=== PATIENT | female | born 1950 | race Hispanic/Latino ===

== ENCOUNTER 2016-08-09 13:24 | Outpatient (CLI) | payer MEDICARE ==
--- NOTE | 2016-08-09 15:10 | Mammography Report ---
Screening mammogram: Routine view is compared to her prior examinations dating back to 2011. In the right CC projection there is a focal asymmetry which is not clearly visualized either in the lateral projection or on prior cc images. The remainder the breast pattern is heterogeneous and symmetrically distributed bilaterally as well as the change from prior exams. CAD used. Impression: Right asymmetry. Recommendation: Spot compression imaging of the right breast. Ultrasound, if needed. BI-RADS CATEGORY: 0 = Needs additional imaging evaluation ACR BI-RADS MAMMOGRAPHIC CODES: 0 = Needs additional imaging evaluation; 1 = Negative; 2 = Benign; 3 = Probably benign; 4 = Suspicious; 5 = Malignant; 6 = Known biopsy-proven malignancy COMMENT: 1. Dense breast tissue, i.e., adenosis, fibrocystic changes, etc., may obscure an underlying neoplasm. 2. Approximately 10% of cancers are not detected with mammography. 3. A negative mammography report should not delay biopsy if a clinically suspicious mass is present.
== END 2016-08-09 13:25 | disposition home or self-care (01) ==
LOC: SPVWC 13:24
PROVIDERS: ATTEND Internal Medicine
DX: Z12.31 Encounter for screening mammogram for malignant neoplasm of breast (principal); Z78.0 Asymptomatic menopausal state
CPT/HCPCS: 77080; G0202; 77067

== ENCOUNTER 2016-08-23 09:48 | Outpatient (CLI) | payer MEDICARE, OTHER ==
--- NOTE | 2016-08-23 10:37 | Mammography Report ---
RIGHT DIGITAL DIAGNOSTIC MAMMOGRAM : 08/23/16 09:48:00 CLINICAL: Recalled for asymmetry. COMPARISON:08/09/16 screening FINDINGS: ML and spot compression CC views were performed. Satisfactory effacement of the previously described asymmetry on the spot viewright . No suspicious finding on the lateral view. IMPRESSION: Negative Mammogram. BI-RADS CATEGORY: 1 -- Negative RECOMMENDATION: Routine mammographic screening in one year. ACR BI-RADS MAMMOGRAPHIC CODES: 0 = Needs additional imaging evaluation; 1 = Negative; 2 = Benign; 3 = Probably benign; 4 = Suspicious; 5 = Malignant; 6 = Known biopsy-proven malignancy COMMENT: 1. Dense breast tissue, i.e., adenosis, fibrocystic changes, etc., may obscure an underlying neoplasm. 2. Approximately 10% of cancers are not detected with mammography. 3. A negative mammography report should not delay biopsy if a clinically suspicious mass is present. COMMENT: Patient follow-up letters are generated via our [employer] application.
== END 2016-08-23 09:49 | disposition home or self-care (01) ==
LOC: SPVWC 09:48
PROVIDERS: ATTEND Internal Medicine
DX: R92.8 Other abnormal and inconclusive findings on diagnostic imaging of breast (principal)
CPT/HCPCS: G0206-RT

== ENCOUNTER 2017-11-03 09:48 | Outpatient (CLI) | payer MEDICARE, OTHER ==
--- NOTE | 2017-11-04 13:48 | Mammography Report ---
BILATERAL DIGITAL SCREENING MAMMOGRAM with CAD: 11/03/17 09:48:00 CLINICAL: Routine screening. COMPARISON:08/09/16 FINDINGS: The breasts are heterogeneously dense, which may obscure small masses. No mass, architectural distortion or suspicious calcifications. IMPRESSION: No mammographic evidence of malignancy. BI-RADS CATEGORY: 1 - - Negative RECOMMENDATION: Routine mammographic screening in one year. COMMENT: Patient follow-up letters are generated by our [employer] application.
== END 2017-11-03 09:49 | disposition home or self-care (01) ==
LOC: SPVWC 09:48
PROVIDERS: ATTEND Internal Medicine
DX: Z12.31 Encounter for screening mammogram for malignant neoplasm of breast (principal)
CPT/HCPCS: 77067

== ENCOUNTER 2017-12-28 06:11 | Day surgery (SDC) | payer MEDICARE, OTHER ==
[2017-12-28] MEDS ORDERED: ECOTRIN PO NR (06:43)
[2017-12-28] MEDS ORDERED: NACL 0.9% 500 ML 500 ML IV SCH (07:00)
[2017-12-28] MEDS ORDERED: HEPARIN/NS 5000 UNIT/500ML(CATH LAB) 1,000 ML IR ONE (08:30)
[2017-12-28] MEDS ORDERED: CALAN ONE (08:31)
[2017-12-28] MEDS ORDERED: NITROGLYCERIN SYRINGE 3 ML ONE (08:31)
[2017-12-28] MEDS ORDERED: XYLOCAINE 2% INFILTRATI ONE (08:31)
[2017-12-28] MEDS ORDERED: HEPARIN 10,000 UNITS/10 ML ONE (08:31)
[2017-12-28] MEDS ORDERED: VERSED ONE (08:32)
[2017-12-28] MEDS ORDERED: SUBLIMAZE ONE (08:32)
--- NOTE | 2017-12-28 10:15 | Cardiac Catherization Report ---
LEFT HEART CATHETERIZATION CLINICAL INFORMATION: This 67-year-old female with obesity, hyperlipidemia, known coronary artery disease has persistent chest pain despite negative stress test. It was done under moderate sedation with 1 mg Versed and 50 mcg of fentanyl. Total sedation time was 11 minutes. START TIME: 906 END TIME: 917 Left heart catheterization was performed via the right radial artery, sterile technique, local anesthesia, normal Edi's test, 6-Indonesian radial sheath inserted. PROCEDURE FINDINGS: Left system engaged with JL3.5 catheter. Left main is large and patent. LAD is a medium caliber vessel patent proximally and distally. Diagonal 1 is a medium caliber vessel that is patent. Ramus is a eylmz-ml-tzjlng caliber vessel that is patent. Circumflex and AV groove is a large caliber. Small OM1 is patent. RCA engaged with JR4 is a large dominant vessel that is patent from proximally to distally. PDA and PLV are medium caliber vessels that are patent. LV gram done in WELSH and RODRIGUEZ view shows normal LV function, EF 55-60%, LVEDP 17 mmHg, LV is 125 mmHg, aortic is 121/69. No gradient across the aortic valve on pullback. The 5-Indonesian catheters were taken over guidewire, 6-Indonesian radial sheath was discontinued, radial dressing applied. No hematoma, no bleeding. SUMMARY: 1. Patent coronaries, right dominant system with normal LV function. 2. Continue noncardiac chest pain treatment. JOB# [id number] TASHA/MICHEAL
[2017-12-28 12:01] VITALS: BP 120/72
--- NOTE | 2017-12-28 13:18 | Short Stay Summary ---
Short Stay Documentation Date of service: 12/28/17 - History H&P: obtained from office - Allergies and Medications Current Medications: Allergies codeine Allergy (Verified 02/18/14 17:33) Nausea meperidine HCl [From Demerol] Allergy (Verified 02/18/14 17:33) Nausea Home Medications Medication Instructions Recorded Confirmed Last Taken Type Ibuprofen [Motrin] 800 mg PO Q6H PRN 02/04/14 12/28/17 12/21/17 History Metformin HCl 500 mg PO BID 02/04/14 12/28/17 12/26/17 History Metoprolol [Lopressor TAB] 25 mg PO DAILY 02/04/14 12/28/17 12/27/17 History Simvastatin [Zocor TAB] 10 mg PO QHS 09/10/15 12/28/17 12/27/17 History Valsartan [Diovan] 80 mg PO HS 09/10/15 12/28/17 12/27/17 History Aspirin [Lo-Dose Aspirin EC] 81 mg PO DAILY 12/28/17 12/28/17 12/27/17 History Carisoprodol [Soma] 350 mg PO TID PRN 12/28/17 12/28/17 Unknown History Famotidine [Pepcid] 20 mg PO BID 12/28/17 12/28/17 12/28/17 05:30 History ISOSORBIDE MONOnitrate [Imdur ER] 30 mg PO DAILY 12/28/17 12/28/17 12/28/17 05: 30 History Active Medications Sodium Chloride (Nacl 0.9% 500 Ml) 500 mls @ 50 mls/hr IV DIRECT HERMINIA Stop: 12/28/17 16:59 Last Admin: 12/28/17 07:30 Dose: 50 mls/hr - Brief post op/procedure progress note Date of procedure: 12/28/17 Pre-op diagnosis: chest pain Post-op diagnosis: same Procedure: LHC - see dictated cath report Anesthesia: local Estimated blood loss: none Condition: stable - Hospital course Hospital course: Pt presented for scheduled elective LHC and subsequently underwent this procedure without complications. She is medically stable for discharge home. - Disposition Condition at discharge: Stable Disposition: DC-01 TO HOME OR SELFCARE - Discharge Diagnoses (1) Chest pain Status: Chronic (2) Hyperlipidemia Status: Chronic (3) CAD (coronary artery disease) Status: Chronic Short Stay Discharge Plan Activity: advance as tolerated Diet: low fat, low cholesterol, low salt Wound: open to air, keep clean and dry, per your surgeon's advice Follow up with: NAOMI NICHOLAS MD [Primary Care Provider] - 7 Days CARINA CURRY MD [Staff Physician] - 7 Days ([place] office, 01/12/2018 @ 10:45AM) Forms: CardCath PCI D/C Instructions
== END 2017-12-28 13:00 | disposition home or self-care (01) ==
LOC: CATHLABREC 06:11
PROVIDERS: ATTEND Internal Medicine
DX: I25.10 Atherosclerotic heart disease of native coronary artery without angina pectoris (principal); I10 Essential (primary) hypertension; E78.2 Mixed hyperlipidemia; E11.9 Type 2 diabetes mellitus without complications; E66.9 Obesity, unspecified; Z68.37 Body mass index [BMI] 37.0-37.9, adult; Z98.890 Other specified postprocedural states; Z79.82 Long term (current) use of aspirin; Z88.6 Allergy status to analgesic agent
CPT/HCPCS: 82962; 93005; 93010; 93458; 99156; 99157; C1894; J1644; J2250; J3010; J7040; Q9967

== ENCOUNTER 2019-01-17 11:02 | Outpatient (CLI) | payer MEDICARE, OTHER ==
--- NOTE | 2019-01-17 12:47 | Ultrasound Report ---
ABDOMINAL ULTRASOUND LIMITED (RIGHT UPPER QUADRANT) HISTORY: Abdominal pain COMPARISON: None. TECHNIQUE: Multiple real-time ultrasonographic grayscale images were obtained of the right upper abdo men. FINDINGS: Pancreas: Enlarged and diffusely echogenic. No mass, calcifications or fluid. Liver: Enlarged and homogeneously echogenic. The right lobe measures 19 cm in length. Normal intrahep atic bile ducts. Gallbladder: Normally distended with a normal wall thickness of 1.4 mm. 2 tiny echogenic foci on the dependent wall of the gallbladder are likely calculi. However, they demonstrate little movement and w eak shadows. The largest measures 6 mm. No pericholecystic fluid and negative Holguin sign. Common cm e duct: 6.3 mm. Right kidney: No significant abnormality. No hydronephrosis. Kidney measures 11.2 x 6.1 x 5.0 cm. Additional findings: None. IMPRESSION: 1. An enlarged liver with moderate diffuse increased echogenicity suggestive of hepatic steatosis. 2. Cholelithiasis with 2 tiny calculi. 3. No evidence of acute cholecystitis. Signer Name: Chu Henderson MD Signed: 01/17/2019 12:42 PM Workstation Name: [id number]
== END 2019-01-17 11:03 | disposition home or self-care (01) ==
LOC: SPVWC 11:02
PROVIDERS: ATTEND Internal Medicine
DX: K80.20 Calculus of gallbladder without cholecystitis without obstruction (principal); E78.5 Hyperlipidemia, unspecified; E78.00 Pure hypercholesterolemia, unspecified; K21.9 Gastro-esophageal reflux disease without esophagitis; E11.9 Type 2 diabetes mellitus without complications
CPT/HCPCS: 76705

== ENCOUNTER 2019-02-20 08:21 | Outpatient (CLI) | payer MEDICARE, OTHER ==
--- NOTE | 2019-02-20 09:09 | Mammography Report ---
DIGITAL SCREENING MAMMOGRAM WITH CAD, 02/20/2019 INDICATION: Routine screening mammography. TECHNIQUE: Digital bilateral 2D mammography was obtained in the craniocaudal and mediolateral obliq ue projections. This examination was interpreted with the benefit of Computer-Aided Detection analysi s. COMPARISON: 06/19/2014 FINDINGS: Breast Density: There are scattered areas of fibroglandular density. There is no evidence of dominant mass, suspicious calcifications or architectural distortion in the l eft breast. Benign calcifications are noted bilaterally. There is a small ill defined masslike density in the central right breast, seen best on the cc view, approximately 3.8 cm from the nipple. This density measures approximately 10 mm and will need to be f urther evaluated with spot compression views and possible ultrasound. IMPRESSION: 10 mm ill-defined nodular density in the 12:00 position of the right breast. Recommend sp ot compression views with possible right breast ultrasound for further evaluation. BI-RADS Category 0: Incomplete. Needs additional imaging evaluation and/or prior mammograms for katharina rison. A "normal" or negative report should not discourage follow up or biopsy of a clinically significant f inding. A written summary of these findings will be mailed to the patient. The patient will be entered into a mammography reporting system which will generate a reminder letter for the patient's next appointmen t at the appropriate interval. The [employer] recommends yearly mammograms starting at age 40 and continuing as l [place] as a woman is in good health. Breast MRI is recommended for women with an approximate 20-25% or greater lifetime risk of breast cancer, including women with a strong family history of breast or ova antonio cancer or who have been treated for Hodgkin's disease. Signer Name: Rachael Alicea MD Signed: 02/20/2019 9:04 AM Workstation Name: [id number]
== END 2019-02-20 08:22 | disposition home or self-care (01) ==
LOC: SPVWC 08:21
PROVIDERS: ATTEND Internal Medicine
DX: Z12.31 Encounter for screening mammogram for malignant neoplasm of breast (principal); E78.5 Hyperlipidemia, unspecified; E78.00 Pure hypercholesterolemia, unspecified; I10 Essential (primary) hypertension; E11.9 Type 2 diabetes mellitus without complications
CPT/HCPCS: 77067

== ENCOUNTER 2019-02-22 10:16 | Outpatient (CLI) | payer MEDICARE, OTHER ==
--- NOTE | 2019-02-22 11:24 | Mammography Report ---
DIGITAL DIAGNOSTIC MAMMOGRAM WITH CAD, 02/22/2019 INDICATION: Callback, abnormal right screening mammogram TECHNIQUE: Digital right mammographic imaging was performed. Spot compression views were obtained. This examination was interpreted with the benefit of Computer-aided Detection analysis. COMPARISON: Recent mammogram 02/20/2019 and prior mammograms from 2018 and 2017. FINDINGS: Breast Density: There are scattered areas of fibroglandular density. Spot compression views of the asymmetry in question in the 12:00 position of the right breast shows c omplete resolution of the asymmetry. The fibroglandular tissue in this region of the breast is unrema rkable and unchanged compared with older mammograms. IMPRESSION: Benign findings. No evidence of malignancy. BI-RADS Category 2: Benign. Recommend routine screening mammography in one year A "normal" or negative report should not discourage follow up or biopsy of a clinically significant f inding. A written summary of these findings will be mailed to the patient. The patient will be entered into a mammography reporting system which will generate a reminder letter for the patient's next appointmen t at the appropriate interval. FURTHER INFORMATION: According to the [employer], yearly mammograms are recommend ed starting at age 40 and continuing as long as a woman is in good health. Breast MRI is recommended for women with an approximately 20-25% or greater lifetime risk of breast cancer, including women wi th a strong family history of breast or ovarian cancer and women who have been treated for Hodgkin's disease. Signer Name: Rachael Alicea MD Signed: 02/22/2019 11:20 AM Workstation Name: [id number]
== END 2019-02-22 10:17 | disposition home or self-care (01) ==
LOC: MAMMO 10:16
PROVIDERS: ATTEND Internal Medicine
DX: R92.8 Other abnormal and inconclusive findings on diagnostic imaging of breast (principal); E78.00 Pure hypercholesterolemia, unspecified; I10 Essential (primary) hypertension; K21.9 Gastro-esophageal reflux disease without esophagitis; E11.9 Type 2 diabetes mellitus without complications